=== PATIENT | male | born 1990 | race Caucasian/White ===

== ENCOUNTER 2016-03-12 17:20 | Emergency (ER) | payer OTHER ==
[~2016-03-12] VITALS: Ht 185.4 cm; Wt 63.3 kg
[~2016-03-12 17:20] MED LIST: DEBROX15 ML BOTH EARS; EFFEXOR75 MG PO; IBUPROFEN600 MG PO; MUCUS ER600 MG PO; NAPROSYN500 MG PO; NOHOMEMEDS; PERCOCET 5/31 TABLET PO; TESSALON PERLE100 MG PO; VICODIN 5-3001 EACH PO
[2016-03-12] MEDS ORDERED: XANAX0.25 MG PO (19:08)
[2016-03-12 19:22] VITALS: BP 136/85
== END 2016-03-12 19:23 | disposition home or self-care (01) ==
LOC: EME 17:20
DX: F41.1 Generalized anxiety disorder (principal); F32.9 Major depressive disorder, single episode, unspecified; F43.23 Adjustment disorder with mixed anxiety and depressed mood; Z73.3 Stress, not elsewhere classified; F17.200 Nicotine dependence, unspecified, uncomplicated
CPT/HCPCS: 90839; 99281; 99284